=== PATIENT | female | born 1930 | race Caucasian/White ===

== ENCOUNTER 2017-08-14 00:44 | Observation (INO) ==
--- NOTE | 2017-08-14 00:51 | Emergency Department Note ---
Disposition Clinical Impression: Chest pain, CAD (coronary artery disease), Anterior chest wall pain Disposition: Admitted As Inpatient Condition: Good Chest Pain HPI - General Stated Complaint: Chest Pain Time Seen by Provider: 08/14/17 00:49 Source: patient, EMS Mode of arrival: EMS Vital Signs Reviewed: Yes Nursing Notes Reviewed: Yes - History of Present Illness HPI Narrative: Patient presents to the ED with the chief complaint of chest pain. Onset was this morning. States that she has a history of angina and this is her to pull chest pain. It normally resolves with nitroglycerin. However, it is not resolved today. It is central chest and right chest wall. States she just really feels unwell. No fever. She is quite hard of hearing and difficult to obtain full review of systems. Denies any abdominal pain, nausea or vomiting. - Related Data Home Medications Medication Instructions Recorded Confirmed Aspirin [Lo-Dose Aspirin EC] 81 mg PO DAILY 08/14/17 08/14/17 Doxepin HCl 10 mg PO HS 08/14/17 08/14/17 Isosorbide MONOnitrate [Isosorbide 30 mg PO DAILY 08/14/17 08/14/17 Mononitrate] Ketoconazole 2% CRM [Nizoral Cream] 1 appl TP BID 08/14/17 08/14/17 Lisinopril [Zestril] 10 mg PO DAILY 08/14/17 08/14/17 Allergies Allergy/AdvReac Type Severity Reaction Status Date / Time acetaminophen [From [place]] Allergy Mild UNKNOWN Verified 12/02/14 13:22 hydrocodone [From [place]] Allergy Mild UNKNOWN Verified 12/02/14 13:22 morphine Allergy Mild UNKNOWN Verified 12/02/14 13:22 propoxyphene Allergy Unknown UNKNOWN Verified 12/02/14 13:22 [From Darvocet-N 100] CONTRAST Allergy Unknown UNKNOWN Uncoded 12/02/14 13:22 IVP DYE Allergy Unknown UNKNOWN Uncoded 12/02/14 13:22 Review of Systems: Limited, but As reviewed in the HPI. All other systems reviewed are negative or normal. Chest Pain PMH - Past Medical History Medical history: Reports: arthritis, coronary artery disease, GERD, hypertension , myocardial infarction Surgical history: Reports: knee replacement Psychiatric history: Reports: anxiety - Social History Smoking Status: Never smoker Alcohol use: Reports: none Drug use: Reports: none Physical Exam - General Limitations: no limitations General appearance: alert, in no apparent distress - Head Head exam: atraumatic, normocephalic, normal inspection - Chest Chest inspection: Present: normal inspection, symmetric chest wall rise, tenderness (Tenderness to the right superior lateral chest.) - Respiratory Respiratory exam: Present: normal lung sounds bilaterally - Cardiovascular Cardiovascular exam: Present: regular rate, normal rhythm, normal heart sounds - Abdominal Exam Abdominal exam: Present: soft, Non-Tender. Absent: tenderness, distention, guarding, rebound, rigidity - Extremities Exam Extremities exam: Present: normal inspection, full ROM. Absent: tenderness - Neurological Exam Neurological exam: Present: alert, oriented X3, other (Very hard of hearing) - Skin Skin exam: Present: warm, dry, intact, normal color Course Course Narrative: Patient presenting with chest pain. Has a history of angina states that this pain is similar, but has not gone away with nitroglycerin. She does have some chest wall pain, but I am not convinced that this is exclusively source of her chest pain. She has a history of coronary disease with multiple stents and bypass and do not feel that she would be safe for discharge home. Admitted to the hospitalist service Vital Signs Temperature 98.6 F 08/14/17 00:46 Pulse Rate 68 08/14/17 00:46 Respiratory Rate 18 08/14/17 00:46 Blood Pressure 200/98 08/14/17 00:46 O2 Sat by Pulse Oximetry 97 08/14/17 00:46 Temperature 97.9 F 08/14/17 03:37 Pulse Rate 77 08/14/17 03:37 Respiratory Rate 14 08/14/17 03:37 Blood Pressure 133/87 08/14/17 03:37 O2 Sat by Pulse Oximetry 99 08/14/17 03:37 Oxygen Delivery Oxygen Delivery Nasal Cannula Chest Pain - Lab Data Result diagrams: 08/14/17 01:22 08/14/17 01:22 Lab Results 08/14/17 08/14/17 08/14/17 Range/Units 01:22 01:22 01:22 WBC (4.3-11.1) K/mcL RBC (3.82-4.97) M/mcL Hgb (11.5-15.4) g/dL Hct (35.3-44.9) % MCV (83.0-100.0) fL MCH (28.0-33.3) pg MCHC (31.6-35.5) g/dL RDW (11.5-14.5) % Plt Count (140-400) K/mcL MPV (9.4-12.4) fL Immature Gran % (0-4) % Seg Neutrophils % % Lymphocytes % % Monocytes % % Eosinophils % % Basophils % % Neutrophils # (1.6-8.9) K/mcL Lymphocytes # (0.6-4.6) K/mcL Monocytes # (0.0-1.3) K/mcL Eosinophils # (0.0-0.6) K/mcL Basophils # (0.0-0.2) K/mcL PT 12.6 H (9.4-12.1) Seconds INR 1.2 APTT 35.0 (26.0-36.0) Seconds Sodium (136-145) mEq/L Potassium (3.5-5.1) mEq/L Chloride (98-107) mEq/L Carbon Dioxide (23-29) mEq/L BUN (8-23) mg/dL Creatinine (0.60-1.20) mg/dL Est GFR ( Amer) (> 60) Est GFR (Non-Af Amer) (> 60) BUN/Creatinine Ratio (6-26) Glucose (70-105) mg/dL Calculated Osmolality (280-300) Calcium (8.6-10.3) mg/dL Total Bilirubin 0.8 (0.3-1.0) mg/dL Direct Bilirubin 0.2 (0.0-0.2) mg/dL Indirect Bilirubin 0.6 (0.0-1.2) mg/dL AST 21 (13-39) Units/L ALT 15 (7-52) Units/L Alkaline Phosphatase 44 (34-104) Units/L Troponin I (< 0.04) ng/mL B-Natriuretic Peptide 54 (Less than 100) pg/mL Serum Total Protein 6.5 (6.4-8.9) g/dL Albumin 3.7 (3.5-5.7) g/dL Globulin 2.8 (2.4-3.5) g/dL Albumin/Globulin Ratio 1.3 (1.1-2.2) Lipase 19 (11-82) Units/L Urine Color (Yellow) Urine Clarity (Clear) Urine pH (5.0-8.0) pH Units Ur Specific [place] (1.010-1.025) Urine Protein (Neg-Trace) mg/dL Urine Glucose (UA) (Normal) mg/dL Urine Ketones (Negative) mg/dL Urine Blood (Negative) Urine Nitrite (Negative) Urine Bilirubin (Negative) Urine Urobilinogen (Normal) mg/dL Ur Leukocyte Esterase (Negative) Ur Culture Indicated? (NO) 08/14/17 08/14/17 08/14/17 Range/Units 01:22 01:22 01:45 WBC 4.7 (4.3-11.1) K/mcL RBC 3.81 L (3.82-4.97) M/mcL Hgb 13.0 (11.5-15.4) g/dL Hct 38.0 (35.3-44.9) % MCV 99.7 (83.0-100.0) fL MCH 34.1 H (28.0-33.3) pg MCHC 34.2 (31.6-35.5) g/dL RDW 14.3 (11.5-14.5) % Plt Count 117 L (140-400) K/mcL MPV 10.2 (9.4-12.4) fL Immature Gran % 0.2 (0-4) % Seg Neutrophils % 52.1 % Lymphocytes % 36.2 % Monocytes % 9.4 % Eosinophils % 1.9 % Basophils % 0.2 % Neutrophils # 2.5 (1.6-8.9) K/mcL Lymphocytes # 1.7 (0.6-4.6) K/mcL Monocytes # 0.4 (0.0-1.3) K/mcL Eosinophils # 0.1 (0.0-0.6) K/mcL Basophils # 0.0 (0.0-0.2) K/mcL PT (9.4-12.1) Seconds INR APTT (26.0-36.0) Seconds Sodium 140 (136-145) mEq/L Potassium 3.4 L (3.5-5.1) mEq/L Chloride 108 H (98-107) mEq/L Carbon Dioxide 23 (23-29) mEq/L BUN 10 (8-23) mg/dL Creatinine 0.64 (0.60-1.20) mg/dL Est GFR ( Amer) > 60 (> 60) Est GFR (Non-Af Amer) > 60 (> 60) BUN/Creatinine Ratio 16 (6-26) Glucose 108 H (70-105) mg/dL Calculated Osmolality 290 (280-300) Calcium 8.9 (8.6-10.3) mg/dL Total Bilirubin (0.3-1.0) mg/dL Direct Bilirubin (0.0-0.2) mg/dL Indirect Bilirubin (0.0-1.2) mg/dL AST (13-39) Units/L ALT (7-52) Units/L Alkaline Phosphatase (34-104) Units/L Troponin I < 0.03 (< 0.04) ng/mL B-Natriuretic Peptide (Less than 100) pg/mL Serum Total Protein (6.4-8.9) g/dL Albumin (3.5-5.7) g/dL Globulin (2.4-3.5) g/dL Albumin/Globulin Ratio (1.1-2.2) Lipase (11-82) Units/L Urine Color Yellow (Yellow) Urine Clarity Clear (Clear) Urine pH 6.5 (5.0-8.0) pH Units Ur Specific [place] 1.008 L (1.010-1.025) Urine Protein Negative (Neg-Trace) mg/dL Urine Glucose (UA) Normal (Normal) mg/dL Urine Ketones Negative (Negative) mg/dL Urine Blood Negative (Negative) Urine Nitrite Negative (Negative) Urine Bilirubin Negative (Negative) Urine Urobilinogen Normal (Normal) mg/dL Ur Leukocyte Esterase Negative (Negative) Ur Culture Indicated? NO (NO)
[2017-08-14 01:33] LABS: Basophils % 0.2 %; Eosinophils # 0.1 K/mcL (0.0-0.6); Eosinophils % 1.9 %; Immature Granulocytes % 0.2 % (0-4); Lymphocytes # 1.7 K/mcL (0.6-4.6); Lymphocytes % 36.2 %; Mean Corpuscular HGB Conc 34.2 g/dL (31.6-35.5); Mean Corpuscular Hemoglobin 34.1 pg (28.0-33.3); Mean Corpuscular Volume 99.7 fL (83.0-100.0); Mean Platelet Volume 10.2 fL (9.4-12.4); Monocytes # 0.4 K/mcL (0.0-1.3); Monocytes % 9.4 %; Neutrophils # 2.5 K/mcL (1.6-8.9); Platelet Count 117 K/mcL (140-400); Red Blood Count 3.81 M/mcL (3.82-4.97); Red Cell Distribution Width 14.3 % (11.5-14.5); Segmented Neutrophils % 52.1 %
[2017-08-14 01:38] LABS: INR 1.2; Prothrombin Time 12.6 Seconds (9.4-12.1)
[2017-08-14 01:54] LABS: Bilirubin,Urine Negative (Negative); Blood,Urine Negative (Negative); Clarity,Urine Clear (Clear); Color,Urine Yellow (Yellow); Glucose,Urine (UA) Normal (Normal); Ketones,Urine Negative (Negative); Leukocyte Esterase,Urine Negative (Negative); Nitrite,Urine Negative (Negative); PH,Urine 6.5 pH Units (5.0-8.0); Protein,Urine Negative (Neg-Trace); Specific Gravity,Urine 1.008 (1.010-1.025); Urobilinogen,Urine Normal (Normal)
[2017-08-14 01:55] LABS: Albumin 3.7 g/dL (3.5-5.7); Albumin/Globulin Ratio 1.3 (1.1-2.2); Bilirubin,Direct 0.2 mg/dL (0.0-0.2); Bilirubin,Indirect 0.6 mg/dL (0.0-1.2); Bilirubin,Total 0.8 mg/dL (0.3-1.0); Globulin 2.8 g/dL (2.4-3.5); Total Protein 6.5 g/dL (6.4-8.9)
[2017-08-14 01:57] LABS: BUN/Creatinine Ratio 16 (6-26); Blood Urea Nitrogen 10 mg/dL (8-23); Calcium 8.9 mg/dL (8.6-10.3); Carbon Dioxide 23 mEq/L (23-29); Chloride 108 mEq/L (98-107); Glucose 108 mg/dL (70-105); Osmolality,Calculated 290 (280-300); Potassium 3.4 mEq/L (3.5-5.1); Sodium 140 mEq/L (136-145); Troponin I < 0.03 ng/mL (< 0.04); eGFR For African Americans > 60 (> 60); eGFR For Non-African Americans > 60 (> 60)
--- NOTE | 2017-08-14 03:08 | Emergency Department Note ---
Disposition Clinical Impression: Chest pain, CAD (coronary artery disease), Anterior chest wall pain Disposition: Admitted As Inpatient Condition: Good General Adult HPI - General Chief complaint: ED Chest Pain Stated complaint: Chest Pain Time Seen by Provider: 08/14/17 00:49 Source: patient, EMS Mode of arrival: EMS Limitations: no limitations, other Nursing Notes Reviewed: Yes Vital Signs Reviewed: Yes - History of Present Illness Pain Scale: 6 - Related Data Home Medications Medication Instructions Recorded Confirmed Aspirin [Lo-Dose Aspirin EC] 81 mg PO DAILY 08/14/17 08/14/17 Betamethasone Dipropionate 45 gm TP BID 08/14/17 08/14/17 Dimethicone [[place]oe [place] Skin 59 ml TP 08/14/17 Conditioner 2] Doxepin HCl 10 mg PO HS 08/14/17 08/14/17 HYDROcodone/Acet 5/325 mg [[place] 1 tab PO Q8HR PRN 08/14/17 08/14/17 5-325 mg] Isosorbide MONOnitrate [Isosorbide 30 mg PO DAILY 08/14/17 08/14/17 Mononitrate] Ketoconazole 2% CRM [Nizoral Cream] 1 appl TP BID 08/14/17 08/14/17 Lisinopril [Zestril] 10 mg PO DAILY 08/14/17 08/14/17 Nitroglycerin [Nitrostat] 0.4 mg SL Q5MIN PRN 08/14/17 08/14/17 Allergies Allergy/AdvReac Type Severity Reaction Status Date / Time acetaminophen [From [place]] Allergy Mild UNKNOWN Verified 12/02/14 13:22 hydrocodone [From [place]] Allergy Mild UNKNOWN Verified 12/02/14 13:22 morphine Allergy Mild UNKNOWN Verified 12/02/14 13:22 propoxyphene Allergy Unknown UNKNOWN Verified 12/02/14 13:22 [From Darvocet-N 100] CONTRAST Allergy Unknown UNKNOWN Uncoded 12/02/14 13:22 IVP DYE Allergy Unknown UNKNOWN Uncoded 12/02/14 13:22 Past Medical History - Past Medical History Medical history: Reports: arthritis, coronary artery disease, GERD, hypertension , myocardial infarction Surgical history: Reports: knee replacement Psychiatric history: Reports: anxiety - Social History Smoking Status: Never smoker Smokeless Tobacco Status: No Alcohol use: Reports: none Drug use: Reports: none Physical Exam - General Limitations: no limitations, other General appearance: alert, obese Course Vital Signs Temperature 98.6 F 08/14/17 00:46 Pulse Rate 68 08/14/17 00:46 Respiratory Rate 18 08/14/17 00:46 Blood Pressure 200/98 08/14/17 00:46 O2 Sat by Pulse Oximetry 97 08/14/17 00:46 Temperature 97.9 F 08/14/17 03:37 Pulse Rate 77 08/14/17 03:37 Respiratory Rate 14 08/14/17 03:37 Blood Pressure 133/87 08/14/17 03:37 O2 Sat by Pulse Oximetry 99 08/14/17 03:37 Oxygen Delivery Oxygen Delivery Nasal Cannula Medical Decision Making - Lab Data Result diagrams: 08/14/17 01:22 08/14/17 01:22 Lab Results 08/14/17 08/14/17 08/14/17 Range/Units 01:22 01:22 01:22 WBC (4.3-11.1) K/mcL RBC (3.82-4.97) M/mcL Hgb (11.5-15.4) g/dL Hct (35.3-44.9) % MCV (83.0-100.0) fL MCH (28.0-33.3) pg MCHC (31.6-35.5) g/dL RDW (11.5-14.5) % Plt Count (140-400) K/mcL MPV (9.4-12.4) fL Immature Gran % (0-4) % Seg Neutrophils % % Lymphocytes % % Monocytes % % Eosinophils % % Basophils % % Neutrophils # (1.6-8.9) K/mcL Lymphocytes # (0.6-4.6) K/mcL Monocytes # (0.0-1.3) K/mcL Eosinophils # (0.0-0.6) K/mcL Basophils # (0.0-0.2) K/mcL PT 12.6 H (9.4-12.1) Seconds INR 1.2 APTT 35.0 (26.0-36.0) Seconds Sodium (136-145) mEq/L Potassium (3.5-5.1) mEq/L Chloride (98-107) mEq/L Carbon Dioxide (23-29) mEq/L BUN (8-23) mg/dL Creatinine (0.60-1.20) mg/dL Est GFR ( Amer) (> 60) Est GFR (Non-Af Amer) (> 60) BUN/Creatinine Ratio (6-26) Glucose (70-105) mg/dL Calculated Osmolality (280-300) Calcium (8.6-10.3) mg/dL Total Bilirubin 0.8 (0.3-1.0) mg/dL Direct Bilirubin 0.2 (0.0-0.2) mg/dL Indirect Bilirubin 0.6 (0.0-1.2) mg/dL AST 21 (13-39) Units/L ALT 15 (7-52) Units/L Alkaline Phosphatase 44 (34-104) Units/L Troponin I (< 0.04) ng/mL B-Natriuretic Peptide 54 (Less than 100) pg/mL Serum Total Protein 6.5 (6.4-8.9) g/dL Albumin 3.7 (3.5-5.7) g/dL Globulin 2.8 (2.4-3.5) g/dL Albumin/Globulin Ratio 1.3 (1.1-2.2) Lipase 19 (11-82) Units/L Urine Color (Yellow) Urine Clarity (Clear) Urine pH (5.0-8.0) pH Units Ur Specific [place] (1.010-1.025) Urine Protein (Neg-Trace) mg/dL Urine Glucose (UA) (Normal) mg/dL Urine Ketones (Negative) mg/dL Urine Blood (Negative) Urine Nitrite (Negative) Urine Bilirubin (Negative) Urine Urobilinogen (Normal) mg/dL Ur Leukocyte Esterase (Negative) Ur Culture Indicated? (NO) 08/14/17 08/14/17 08/14/17 Range/Units 01:22 01:22 01:45 WBC 4.7 (4.3-11.1) K/mcL RBC 3.81 L (3.82-4.97) M/mcL Hgb 13.0 (11.5-15.4) g/dL Hct 38.0 (35.3-44.9) % MCV 99.7 (83.0-100.0) fL MCH 34.1 H (28.0-33.3) pg MCHC 34.2 (31.6-35.5) g/dL RDW 14.3 (11.5-14.5) % Plt Count 117 L (140-400) K/mcL MPV 10.2 (9.4-12.4) fL Immature Gran % 0.2 (0-4) % Seg Neutrophils % 52.1 % Lymphocytes % 36.2 % Monocytes % 9.4 % Eosinophils % 1.9 % Basophils % 0.2 % Neutrophils # 2.5 (1.6-8.9) K/mcL Lymphocytes # 1.7 (0.6-4.6) K/mcL Monocytes # 0.4 (0.0-1.3) K/mcL Eosinophils # 0.1 (0.0-0.6) K/mcL Basophils # 0.0 (0.0-0.2) K/mcL PT (9.4-12.1) Seconds INR APTT (26.0-36.0) Seconds Sodium 140 (136-145) mEq/L Potassium 3.4 L (3.5-5.1) mEq/L Chloride 108 H (98-107) mEq/L Carbon Dioxide 23 (23-29) mEq/L BUN 10 (8-23) mg/dL Creatinine 0.64 (0.60-1.20) mg/dL Est GFR ( Amer) > 60 (> 60) Est GFR (Non-Af Amer) > 60 (> 60) BUN/Creatinine Ratio 16 (6-26) Glucose 108 H (70-105) mg/dL Calculated Osmolality 290 (280-300) Calcium 8.9 (8.6-10.3) mg/dL Total Bilirubin (0.3-1.0) mg/dL Direct Bilirubin (0.0-0.2) mg/dL Indirect Bilirubin (0.0-1.2) mg/dL AST (13-39) Units/L ALT (7-52) Units/L Alkaline Phosphatase (34-104) Units/L Troponin I < 0.03 (< 0.04) ng/mL B-Natriuretic Peptide (Less than 100) pg/mL Serum Total Protein (6.4-8.9) g/dL Albumin (3.5-5.7) g/dL Globulin (2.4-3.5) g/dL Albumin/Globulin Ratio (1.1-2.2) Lipase (11-82) Units/L Urine Color Yellow (Yellow) Urine Clarity Clear (Clear) Urine pH 6.5 (5.0-8.0) pH Units Ur Specific [place] 1.008 L (1.010-1.025) Urine Protein Negative (Neg-Trace) mg/dL Urine Glucose (UA) Normal (Normal) mg/dL Urine Ketones Negative (Negative) mg/dL Urine Blood Negative (Negative) Urine Nitrite Negative (Negative) Urine Bilirubin Negative (Negative) Urine Urobilinogen Normal (Normal) mg/dL Ur Leukocyte Esterase Negative (Negative) Ur Culture Indicated? NO (NO) Attestation Statement - Attestation Attestation: I, Joe Colon MD, personally evaluated this patient and discussed their management with the resident physician. I reviewed the resident's note and agree with the documented findings, medical decision making, and plan of care. 87-year-old female presents to the emergency department with a complaint of chest pain. Pain seems to be in the right upper anterior chest. Patient is extremely hard of hearing and is really unable to describe the pain or provide much significant history or review of systems. On examination patient is a well-developed well-nourished elderly female in no acute distress. She is alert. There is no cyanosis or diaphoresis. Patient is extremely hard of hearing. There is tenderness to palpation over the upper right anterior chest wall. Breath sounds are equal bilaterally. Heart regular. Abdomen soft and nontender with normal bowel sounds. EKG shows a normal sinus rhythm with ventricular rate is 73. No acute ST segment elevation or depression. Chest x-ray shows no acute cardiopulmonary disease. Questionable left upper lobe nodule. Labs reviewed and unremarkable. Troponin normal. The hospitalist, Dr. Harding, was consulted and accepted admission of the patient.
[2017-08-14] MEDS ORDERED: Naloxone 0.4 MG/ML INJ IVP PRN (04:14)
--- NOTE | 2017-08-14 05:44 | Internal Med History&Physical ---
Date of Encounter: 08/14/17 Time of Encounter: 04:00 Internal Medicine - H&P: HPI Chief complaint: Chest pain Admitted From: Home Plans for Post Hospital Care: Home History of present illness: Ms. Tatum is a 87 year old female present to ER for chest pain. Past medical history is significant for hypertension. Patient said she has angina for many years. Today since the 7 PM, she has chest pain on the right side of chest, it is different with previous angina. Patient takes 2 pills of aspirin, sublingual nitroglycerin every 15 minutes 3. The pain does not go away. Patient denies nausea or diaphoresis. She has a mild shortness of breath. In the emergency room, EKG and chest x-ray unremarkable, patient's chest pain subsided. Patient was admitted for chest pain to rule out ACS. When I saw patient in floor, she said her chest pain has resolved. Past Med Surg Social Fam HX - Past Medical History Medical history: arthritis, coronary artery disease, GERD, hypertension, myocardial infarction Psychiatric history: anxiety - Past Surgical History Surgical History: knee replacement - Social History Smoking Status: Never smoker Smokeless Tobacco Status: No Alcohol use: none Drug use: none - Family History Mother Family Member Ethnicity: Non- Living Status: Hx Family Cardiac Disorders: No Hx Family Respiratory Disorders: No Hx Family Cancer: No Hx Family GI Disorders: No Hx Family Endocrine Disorder: No Hx Family Neuromuscular Disorders: No Hx Family Neurologic Disorders: No Hx Family HEENT Disorders: No Hx Family Autoimmune Disorders: No Father Living Status: Hx Family Cardiac Disorders: No Internal Medicine - H&P: Meds Aspirin [Lo-Dose Aspirin EC] 81 mg PO DAILY 08/14/17 [History] Betamethasone Dipropionate 45 gm TP BID 08/14/17 [History] Dimethicone [[place] Skin Conditioner 2] 59 ml TP 08/14/17 [History] Doxepin HCl 10 mg PO HS 08/14/17 [History] HYDROcodone/Acet 5/325 mg [[place] 5-325 mg] 1 tab PO Q8HR PRN 08/14/17 [History] Isosorbide MONOnitrate [Isosorbide Mononitrate] 30 mg PO DAILY 08/14/17 [History ] Ketoconazole 2% CRM [Nizoral Cream] 1 appl TP BID 08/14/17 [History] Lisinopril [Zestril] 10 mg PO DAILY 08/14/17 [History] Nitroglycerin [Nitrostat] 0.4 mg SL Q5MIN PRN 08/14/17 [History] 3 Allergy/AdvReac Type Severity Reaction Status Date / Time acetaminophen [From [place]] Allergy Mild UNKNOWN Verified 12/02/14 13:22 hydrocodone [From [place]] Allergy Mild UNKNOWN Verified 12/02/14 13:22 morphine Allergy Mild UNKNOWN Verified 12/02/14 13:22 propoxyphene Allergy Unknown UNKNOWN Verified 12/02/14 13:22 [From Darvocet-N 100] CONTRAST Allergy Unknown UNKNOWN Uncoded 12/02/14 13:22 IVP DYE Allergy Unknown UNKNOWN Uncoded 12/02/14 13:22 All Systems PM: A 10-system review of systems was performed and is negative for pertinent findings except as documented above in the HPI. - Constitutional Vitals: Temp Pulse Resp BP Pulse Ox 97.9 F 77 14 133/87 99 08/14/17 03:37 08/14/17 03:37 08/14/17 03:37 08/14/17 03:37 08/14/17 03:37 General appearance: Present: A&O X 3, no acute distress, answers questions appropriately - Head Head exam: Present: atraumatic, normocephalic - Eye Eye exam: Present: PERRL, conjuntiva pink, sclera anicteric Pupils: Present: PERRL - Neck Neck exam general surgery: Present: supple, trachea midline. Absent: lymphadenopathy - Respiratory Respiratory exam: Present: chest wall tenderness (Patient has a clear chest wall tenderness on right side chest wall), CTAB. Absent: accessory muscle use, rales, rhonchi, wheezes - Cardiovascular Cardiovascular exam: Present: RRR, +S1, +S2. Absent: diastolic murmur, gallop, rubs, systolic murmur - GI/Abdominal GI/Abdominal exam: Present: normal bowel sounds, soft, no peritoneal signs. Absent: distended, tenderness - Extremities Exam Extremities exam: Present: warm, radial pulses palpable and symmetrical. Absent : calf tenderness, cyanotic, pedal edema - Neurological Exam Neurological exam: Present: CN II-XII intact, oriented X3, no focal deficits. Absent: pronater drift, facial droop, speech deficit - Skin Skin exam: Present: dry, intact Internal Med - H&P Results - Labs CBC & Chem 7: 08/14/17 01:22 08/14/17 01:22 - Assessment and plan (1) Chest pain Current Visit: No Status: Resolved Assessment and plan: Patient has a right-sided chest pain. The chest pain is inducible by palpitation. Consider most likely skeletal muscular pain. However, will rule out ACS. - Place patient on continuous cardiac monitoring - Track 3 sets of troponin - Echocardiogram Qualifiers: Chest pain type: intercostal pain Qualified Code(s): R07.82 - Intercostal pain (2) Hypertension Current Visit: No Status: Chronic Assessment and plan: Continue home medications Qualifiers: Hypertension type: essential hypertension Qualified Code(s): I10 - Essential (primary) hypertension - Time Spent With Patient Total time spent is greater than 50% in coordination of care (as documented) at patient's floor/unit and/or counseling patient:
[2017-08-14] MEDS: Aspirin Enteric Coated 81 MG Tablet PO SCH (10:09)
[2017-08-14] MEDS: Isosorbide MONOnitrate (24 HR) 30 MG TAB.ER.24H PO SCH (10:09)
[2017-08-14] MEDS: Ketoconazole 2% CRM 15 GM TUBE TP SCH ×2 (10:10→21:53)
--- NOTE | 2017-08-14 19:51 | Event Note ---
Date of Encounter: 08/14/17 Time of Encounter: 09:00 Patient was seen earlier in the morning by the hospitalist presently she is chest pain-free however she does complain of pain upon palpation of chest. She does not appear to be any respiratory distress denies any discomfort. Troponins have been negative we will continue to trend and monitor awaiting echo report.
[2017-08-14] MEDS ORDERED: (Doxepin Hcl [Doxepin Hcl] 10 MG) PO SCH (21:00)
[2017-08-14] MEDS ORDERED: *HR* HYDROcodone/Acet 5/325 mg TABLET PO PRN (22:04)
[2017-08-14] MEDS ORDERED: Acetaminophen 325 MG TABLET PO PRN (23:25)
[2017-08-15 06:11] LABS: Basophils % 0.7 %; Eosinophils # 0.1 K/mcL (0.0-0.6); Hematocrit 37.1 % (35.3-44.9); Hemoglobin 12.6 g/dL (11.5-15.4); Immature Granulocytes % 0.2 % (0-4); Lymphocytes # 1.4 K/mcL (0.6-4.6); Lymphocytes % 32.5 %; Mean Corpuscular Hemoglobin 33.4 pg (28.0-33.3); Mean Corpuscular Volume 98.4 fL (83.0-100.0); Mean Platelet Volume 10.4 fL (9.4-12.4); Monocytes # 0.4 K/mcL (0.0-1.3); Neutrophils # 2.5 K/mcL (1.6-8.9); Platelet Count 113 K/mcL (140-400); Red Blood Count 3.77 M/mcL (3.82-4.97); Red Cell Distribution Width 14.3 % (11.5-14.5); Segmented Neutrophils % 55.6 %
[2017-08-15 06:29] LABS: BUN/Creatinine Ratio 12 (6-26); Blood Urea Nitrogen 7 mg/dL (8-23); Carbon Dioxide 24 mEq/L (23-29); Chloride 109 mEq/L (98-107); Glucose 96 mg/dL (70-105); Magnesium 1.6 mg/dL (1.6-2.6); Osmolality,Calculated 292 (280-300); Potassium 3.6 mEq/L (3.5-5.1); Sodium 142 mEq/L (136-145); eGFR For African Americans > 60 (> 60); eGFR For Non-African Americans > 60 (> 60)
[2017-08-15] MEDS: Ketoconazole 2% CRM 15 GM TUBE TP SCH (08:48)
[2017-08-15] MEDS: Isosorbide MONOnitrate (24 HR) 30 MG TAB.ER.24H PO SCH (08:48)
[2017-08-15] MEDS: Aspirin Enteric Coated 81 MG Tablet PO SCH (08:48)
[2017-08-15 10:46] VITALS: BP 161/65
--- NOTE | 2017-08-15 13:48 | Discharge Summary ---
- NOTES TO OUTPATIENT PROVIDER Notes to Outpatient Provider: f/u with PCP within a week. Date of Encounter: 08/15/17 Time of Encounter: 13:46 - Discharge Diagnosis (1) Chest pain Priority: Primary Status: Acute Qualifiers: Chest pain type: intercostal pain Qualified Code(s): R07.82 - Intercostal pain (2) Hypertension Priority: Secondary Status: Chronic Qualifiers: Hypertension type: essential hypertension Qualified Code(s): I10 - Essential (primary) hypertension Hospital course: Ms. Tatum is a 87 year old female with past medical history of hypertension presented with a typical chest pain. She describes the chest pain located on the right side of the chest, and not relieved by aspirin and a nitroglycerin. ED workup including EKG and the troponin wall reassuring, she was admitted as observation. She reported the chest pain has resolved after admission. Her cardiogram showed EF 60-65%, normal LV systolic function, mild diastolic dysfunction, and no valvular dysfunction. Based on the clinical medicines manifestation and the cardiac tests, the likelihood of ACS is low. She will be discharged home today. She will follow-up with PCP within a week. Her blood pressure was poorly controlled, her home medication was adjusted. Discharge discussed with: patient Time spent discussing smoking cessation with patient: 3 to 10 minutes - Time Spent with Patient Total time spent providing and/or coordinating discharge services: Less than 30 minutes - Discharge Medications Home Medications: Aspirin [Lo-Dose Aspirin EC] 81 mg PO DAILY 08/14/17 [History] Betamethasone Dipropionate 45 gm TP BID 08/14/17 [History] Dimethicone [Aloe [place] Skin Conditioner 2] 1 appl TP DAILY 08/14/17 [History] Doxepin HCl 10 mg PO HS 08/14/17 [History] HYDROcodone/Acet 5/325 mg [Mayer 5-325 mg] 1 tab PO Q8HR PRN 08/14/17 [History] Ketoconazole 2% CRM [Nizoral Cream] 1 appl TP BID 08/14/17 [History] Lisinopril [Zestril] 10 mg PO DAILY 08/14/17 [History] Nitroglycerin [Nitrostat] 0.4 mg SL Q5MIN PRN 08/14/17 [History] Isosorbide MONOnitrate (24 HR) [Imdur] 60 mg PO DAILY tab.er.24h 08/15/17 [Rx] Allergies/Adverse Reactions: 3 Allergy/AdvReac Type Severity Reaction Status Date / Time acetaminophen [From Mayer] Allergy Mild UNKNOWN Verified 12/02/14 13:22 hydrocodone [From Mayer] Allergy Mild UNKNOWN Verified 12/02/14 13:22 morphine Allergy Mild UNKNOWN Verified 12/02/14 13:22 propoxyphene Allergy Unknown UNKNOWN Verified 12/02/14 13:22 [From Darvocet-N 100] CONTRAST Allergy Unknown UNKNOWN Uncoded 12/02/14 13:22 IVP DYE Allergy Unknown UNKNOWN Uncoded 12/02/14 13:22 Date of admission: 08/14/17 02:56 Primary care physician: Kristine Ni CNP Consults: 08/14/17 04:17 Consult to Molded Frames Assembler [CONS] Routine Reason for SW Consult: patient reports she has had a lot of stress at home, responsible for her 70yo daughter and 40 yo grandson, has an oxygen tank that her son gave her Anticipated date of discharge: 08/15/17 - Constitutional Vitals: Temp Pulse Resp BP Pulse Ox 97.8 F 66 16 161/65 100 08/15/17 10:44 08/15/17 10:44 08/15/17 10:44 08/15/17 10:44 08/15/17 10:44 General appearance: Present: A&O X 3, no acute distress, answers questions appropriately Exam: PHYSICAL EXAMINATION: GENERAL APPEARANCE: The patient is alert, oriented and in no acute distress. HEENT: Head is normocephalic. The sinuses are nontender. Pupils are equal and reactive. The nares are patent. Oropharynx clear without lesions. NECK: Supple without lymphadenopathy. HEART: Regular rate and rhythm. LUNGS: No crackles or wheezes are heard. ABDOMEN: Soft, nontender, nondistended with good bowel sounds heard. Inguinal area is normal. EXTREMITIES: Without cyanosis, clubbing or edema. NEUROLOGICAL: Gross nonfocal. SKIN: Warm and dry without any rash. - Patient Status Disposition: Home, Self-Care Condition: Good Functional capacity at discharge: independent ambulation Overall status at discharge: patient is back to baseline - Discharge Instructions Follow Up With: Kristine Ni CNP [Primary Care Provider] - 08/22/17 10:00 am Forms: ED Satisfaction Letter - Diet and Activity Activity: increase activity as tolerated Diet: low fat, low cholesterol, low salt diet
[2017-08-16] MEDS ORDERED: Lisinopril 20 MG TABLET PO SCH (09:00)
[2017-08-16] MEDS ORDERED: Isosorbide MONOnitrate (24 HR) 60 MG TAB.ER.24H PO SCH (09:00)
--- NOTE | 2017-08-18 14:24 | Electrocardiograph Report ---
[address] [address] Test Date: 2017-08-14 Pat Name: Vicenta Tatum Department: 103 Room: 3B14 Gender: F Translator: MARKOS : 1930 Requested By: [id number] Order Number: [id number] Reading MD: Costa Marie Measurements Intervals Lucas Rate: 73 P: 40 DC: 185 QRS: 44 QRSD: 101 T: 42 QT: 402 QTc: 428 Interpretive Statements SINUS RHYTHM Electronically Signed On 08-18-2017 14:22:49 EDT by Costa Marie
== END 2017-08-15 15:56 | disposition home or self-care (01) ==
LOC: EMEROO 00:44 → 3BNU 00:44
PROVIDERS: ADMIT Internal Medicine; ATTEND Registered Nurse

== ENCOUNTER 2019-07-07 23:40 | Observation (INO) ==
[2019-07-07] MEDS ORDERED: Nitroglycerin 0.4 MG TAB.SUBL SL PRN (23:45)
[2019-07-07] MEDS ORDERED: Aspirin 81 MG TAB.CHEW PO ONE (23:45)
[2019-07-08 00:59] LABS: Basophils % 0.4 %; Eosinophils # 0.1 K/mcL (0.0-0.6); Hematocrit 36.9 % (35.3-44.9); Immature Granulocytes % 0.2 % (0-4); Lymphocytes # 0.7 K/mcL (0.6-4.6); Lymphocytes % 14.3 %; Mean Corpuscular HGB Conc 32.5 g/dL (31.6-35.5); Mean Corpuscular Hemoglobin 33.5 pg (28.0-33.3); Mean Corpuscular Volume 103.1 fL (83.0-100.0); Mean Platelet Volume 10.3 fL (9.4-12.4); Monocytes # 0.4 K/mcL (0.0-1.3); Monocytes % 7.2 %; Neutrophils # 3.9 K/mcL (1.6-8.9); Platelet Count 110 K/mcL (140-400); Red Blood Count 3.58 M/mcL (3.82-4.97); Red Cell Distribution Width 13.6 % (11.5-14.5); Segmented Neutrophils % 76.9 %; White Blood Count 5.1 K/mcL (4.3-11.1)
[2019-07-08 01:13] LABS: INR 1.2; Prothrombin Time 13.3 Seconds (9.4-12.1)
[2019-07-08 01:16] LABS: Activated Partial Thrombo Time 37.2 Seconds (26.0-36.0)
[2019-07-08 01:22] LABS: BUN/Creatinine Ratio 19 (6-26); Blood Urea Nitrogen 15 mg/dL (8-23); Calcium 9.2 mg/dL (8.6-10.3); Carbon Dioxide 25 mEq/L (23-29); Chloride 109 mEq/L (98-107); Glucose 141 mg/dL (70-105); Osmolality,Calculated 297 (280-300); Potassium 3.4 mEq/L (3.5-5.1); Sodium 142 mEq/L (136-145); Troponin I < 0.03 ng/mL (< 0.04); eGFR For African Americans > 60 (> 60); eGFR For Non-African Americans > 60 (> 60)
[2019-07-08] MEDS ORDERED: Ondansetron 4 MG/2 ML VIAL IVP PRN (01:56)
[2019-07-08] MEDS ORDERED: Naloxone 0.4 MG/ML INJ IVP PRN (01:56)
[2019-07-08] MEDS ORDERED: *HR* Labetalol 20 MG/4 ML SYRINGE IVP PRN (01:58)
[2019-07-08] MEDS ORDERED: *HR* HYDROcodone/Acet 5/325 mg TABLET PO PRN (03:10)
[2019-07-08 07:54] LABS: Chol/HDL Ratio 2.5 (0-4.9)
[2019-07-08 08:10] LABS: Estimated Average Glucose 100 mg/dl
[2019-07-08] MEDS ORDERED: Aspirin Enteric Coated 81 MG Tablet PO SCH (09:00)
[2019-07-08] MEDS ORDERED: lisinopriL 10 MG TABLET PO SCH (09:00)
[2019-07-08] MEDS ORDERED: Isosorbide MONOnitrate (24 HR) 60 MG TAB.ER.24H PO SCH (09:00)
[2019-07-08 10:25] VITALS: BP 136/65
[2019-07-08] MEDS ORDERED: Perflutren Lipid Microsphere 1.3 ML in 0.9 % Sodium Chloride 8.7 ML IVP ONE (13:25)
[2019-07-08] MEDS ORDERED: DOXEPIN 10MG PO SCH (21:00)
== END 2019-07-08 13:38 | disposition home health service (06) ==
LOC: EMEROOARM 23:40 → 3BNU 23:40 → SUATTDRO 07-08 02:19 → 3BNU 07-08 02:40
PROVIDERS: ADMIT Internal Medicine; ATTEND Internal Medicine

== ENCOUNTER 2019-10-16 16:30 | Observation (INO) ==
[2019-10-16] MEDS ORDERED: Aspirin 81 MG TAB.CHEW PO ONE (17:00)
[2019-10-16 17:01] LABS: Basophils % 0.6 %; Eosinophils % 0.8 %; Hematocrit 40.1 % (35.3-44.9); Hemoglobin 13.5 g/dL (11.5-15.4); Immature Granulocytes % 0.4 % (0-4); Lymphocytes # 1.4 K/mcL (0.6-4.6); Lymphocytes % 26.8 %; Mean Corpuscular HGB Conc 33.7 g/dL (31.6-35.5); Mean Corpuscular Hemoglobin 34.1 pg (28.0-33.3); Mean Corpuscular Volume 101.3 fL (83.0-100.0); Mean Platelet Volume 10.2 fL (9.4-12.4); Monocytes # 0.3 K/mcL (0.0-1.3); Monocytes % 6.4 %; Neutrophils # 3.4 K/mcL (1.6-8.9); Platelet Count 118 K/mcL (140-400); Red Blood Count 3.96 M/mcL (3.82-4.97); Red Cell Distribution Width 13.6 % (11.5-14.5); White Blood Count 5.2 K/mcL (4.3-11.1)
[2019-10-16 17:05] LABS: INR 1.1; Prothrombin Time 12.3 Seconds (9.4-12.1)
[2019-10-16 17:07] LABS: Activated Partial Thrombo Time 34.8 Seconds (26.0-36.0)
[2019-10-16] MEDS: Nitroglycerin 0.4 MG TAB.SUBL SL PRN ×3 (17:15→18:21)
[2019-10-16 17:19] LABS: Alanine Aminotransferase 21 Units/L (7-52); Albumin 4.4 g/dL (3.5-5.7); Albumin/Globulin Ratio 1.5 (1.1-2.2); Alkaline Phosphatase 48 Units/L (34-104); Aspartate Amino Transferase 26 Units/L (13-39); BUN/Creatinine Ratio 13 (6-26); Bilirubin,Direct 0.3 mg/dL (0.0-0.2); Bilirubin,Indirect 1.1 mg/dL (0.0-1.0); Bilirubin,Total 1.4 mg/dL (0.3-1.0); Blood Urea Nitrogen 9 mg/dL (8-23); Calcium 9.9 mg/dL (8.6-10.3); Carbon Dioxide 21 mEq/L (23-29); Chloride 105 mEq/L (98-107); Glucose 113 mg/dL (70-105); Lipase 29 Units/L (11-82); Osmolality,Calculated 287 (280-300); Potassium 3.9 mEq/L (3.5-5.1); Sodium 139 mEq/L (136-145); Total Protein 7.4 g/dL (6.4-8.9); Troponin I < 0.03 ng/mL (< 0.04); eGFR For African Americans > 60 (> 60); eGFR For Non-African Americans > 60 (> 60)
[2019-10-16 18:05] LABS: Bilirubin,Urine Negative (Negative); Blood,Urine Negative (Negative); Clarity,Urine Clear (Clear); Color,Urine Colorless (Yellow); Glucose,Urine (UA) Normal (Normal); Ketones,Urine Negative (Negative); Leukocyte Esterase,Urine Negative (Negative); Nitrite,Urine Negative (Negative); Protein,Urine Negative (Neg-Trace); Specific Gravity,Urine 1.007 (1.010-1.025); Urobilinogen,Urine Normal (Normal)
[2019-10-16] MEDS ORDERED: *HR* HYDROcodone/Acet 5/325 mg TABLET PO PRN (19:38)
[2019-10-16] MEDS ORDERED: (Doxepin Hcl 10 MG) PO SCH (21:00)
[2019-10-16] MEDS ORDERED: *HR* Labetalol 20 MG/4 ML SYRINGE IVP ONE (22:14)
[2019-10-17] MEDS: *HR* Heparin 5,000 UNIT/ML VIAL SQ SCH ×3 (01:14→14:59)
[2019-10-17] MEDS: FluocinoNIDE 0.05% CRM 15 GM TUBE TP SCH ×2 (01:14→07:50)
[2019-10-17] MEDS: lisinopriL 10 MG TABLET PO SCH ×2 (01:38→07:50)
[2019-10-17] MEDS ORDERED: Acetaminophen/Aspirin/Caffeine TABLET PO PRN (02:40)
[2019-10-17 05:12] LABS: Basophils % 0.6 %; Eosinophils % 0.6 %; Hematocrit 39.5 % (35.3-44.9); Immature Granulocytes % 0.4 % (0-4); Lymphocytes # 0.8 K/mcL (0.6-4.6); Lymphocytes % 16.3 %; Mean Corpuscular HGB Conc 32.9 g/dL (31.6-35.5); Mean Corpuscular Hemoglobin 33.3 pg (28.0-33.3); Mean Corpuscular Volume 101.3 fL (83.0-100.0); Mean Platelet Volume 10.1 fL (9.4-12.4); Monocytes # 0.4 K/mcL (0.0-1.3); Monocytes % 8.4 %; Neutrophils # 3.8 K/mcL (1.6-8.9); Platelet Count 112 K/mcL (140-400); Red Cell Distribution Width 13.7 % (11.5-14.5); Segmented Neutrophils % 73.7 %; White Blood Count 5.1 K/mcL (4.3-11.1)
[2019-10-17 05:59] LABS: BUN/Creatinine Ratio 17 (6-26); Blood Urea Nitrogen 11 mg/dL (8-23); Calcium 9.5 mg/dL (8.6-10.3); Carbon Dioxide 20 mEq/L (23-29); Chloride 109 mEq/L (98-107); Glucose 109 mg/dL (70-105); Osmolality,Calculated 288 (280-300); Potassium 4.1 mEq/L (3.5-5.1); Sodium 139 mEq/L (136-145); Thyroid Stimulating Hormone 1.221 mcIU/mL (0.340-5.600); Troponin I < 0.03 ng/mL (< 0.04); eGFR For African Americans > 60 (> 60); eGFR For Non-African Americans > 60 (> 60)
[2019-10-17 08:12] VITALS: BP 127/87
[2019-10-17] MEDS ORDERED: lisinopriL 10 MG TABLET PO SCH (09:00)
[2019-10-17] MEDS ORDERED: polyethylene glycoL 3350 17 GM POWD.PACK PO SCH (09:00)
[2019-10-17] MEDS ORDERED: Isosorbide MONOnitrate (24 HR) 60 MG TAB.ER.24H PO SCH (09:00)
[2019-10-17] MEDS ORDERED: Aspirin Enteric Coated 81 MG Tablet PO SCH (09:00)
== END 2019-10-17 15:33 | disposition home or self-care (01) ==
LOC: 3BNU 16:30 → EMEROOARM 16:30 → 2NENU 18:34
PROVIDERS: ADMIT Pharmacist; ATTEND Pharmacist